=== PATIENT | female | born 1975 | race Caucasian/White ===

== ENCOUNTER 2017-03-31 19:53 | Emergency (ER) | payer OTHER ==
[~2017-03-31] VITALS: Ht 165.1 cm; Wt 72.5 kg
[2017-03-31] MEDS ORDERED: SODIUM CHLORIDE FLUSH 10ML SYR IVF ONE (20:30)
[2017-03-31] MEDS ORDERED: SODIUM CHLORIDE 0.9% 1,000ML IVBOLUS ONE (20:30)
[2017-03-31 21:31] LABS: HEMATOCRIT 44.9 % (34.6-47.8); HEMOGLOBIN 15.3 g/dL (11.7-16.4); WHITE BLOOD COUNT 20.3 x10^3/uL (3.4-10)
[2017-03-31 21:43] LABS: ASPARTATE AMINO TRANSFERASE 17 U/L (15-37); BLOOD UREA NITROGEN 11 mg/dL (7-18)
[2017-03-31] MEDS ORDERED: HYDROmorphone 1 MG/ML, 1ML ONE ×2 (21:48→23:31)
[2017-03-31] MEDS ORDERED: ONDANSETRON 2MG/ML, 2ML ONE (21:49)
[2017-03-31] MEDS ORDERED: KETOROLAC 30 MG/1 ML ONE (21:49)
[2017-03-31] MEDS ORDERED: ONDANSETRON 2MG/ML, 2ML IVPush ONE (22:00)
[2017-03-31] MEDS ORDERED: KETOROLAC 60 MG/2 ML IVPush ONE (22:00)
[2017-03-31] MEDS ORDERED: HYDROmorphone 1 MG/ML, 1ML IV ONE ×2 (22:00→23:30)
[2017-03-31 23:38] VITALS: BP 122/77
== END 2017-03-31 23:59 | disposition home or self-care (01) ==
LOC: ED 20:52
DX: N20.1 Calculus of ureter (principal); Z87.442 Personal history of urinary calculi; Z90.710 Acquired absence of both cervix and uterus; Z98.51 Tubal ligation status
CPT/HCPCS: 36415; 74176; 80053; 81001; 84703; 85025; 87086; 96361; 96374; 96375; 96376; 99285; J1170; J1885; J2405; J7030